=== PATIENT | female | born 1985 | race Caucasian/White ===

== ENCOUNTER 2017-06-19 08:38 | Emergency (ER) | payer BC ==
[~2017-06-19] VITALS: Ht 162.6 cm; Wt 64.4 kg
[~2017-06-19 08:38] MED LIST: FLEXERIL10 MG PO; MOTRIN600 MG PO
[2017-06-19] MEDS ORDERED: AMOXICILLIN875 MG PO (09:08)
[2017-06-19 09:36] LABS: EOSINOPHIL (%) 0.1 % (0-5); HEMATOCRIT 39.1 % (36.0-46.0); IMMATURE GRANULOCYTE (%) 0.5 % (0.0-0.7); IMMATURE GRANULOCYTE COUNT 0.1 K/uL; INSTRUMENT ABS NEUTROPHIL CT 13.2 K/uL; LYMPHOCYTE COUNT 1.1 K/uL (1.0-2.8); MCH 28.1 PG (29.0-34.0); MCHC 33.2 G/DL (30.0-36.0); MCV 84.6 FL (83-99); MEAN PLAT.VOLUME 10.4 uM^3 (9.5-12.4); MONOCYTE (%) 6.3 % (3-12); NEUTROPHIL (%) 85.5 % (45-76); NEUTROPHIL COUNT 13.2 K/uL (1.8-6.4); PLATELET COUNT 233 K/uL (156-360); RBC DIS.WIDTH-CV 12.2 % (11.8-14.6); RBC DIS.WIDTH-SD 37.3 % (39-53); RED BLOOD COUNT 4.62 M/uL (3.80-5.20); WHITE BLOOD COUNT 15.5 K/uL (4.1-10.2)
[2017-06-19 09:49] LABS: CHLORIDE 105 mEq/L (99-109); POTASSIUM 3.5 mEq/L (3.7-5.4); SODIUM 136 mEq/L (136-147)
[2017-06-19 09:50] LABS: GLUCOSE 161 mg/dL (70-99)
[2017-06-19 09:52] LABS: ANION GAP 9 MEQ/L (2-14)
[2017-06-19 09:54] LABS: GFR ESTIMATE (CALCULATED) > 59 mL/min/
[2017-06-19 09:55] LABS: UREA NITROGEN (BUN) 8 mg/dL (9-23)
[2017-06-19] MEDS ORDERED: TYLENOL WITH C1 EACH PO (11:17)
[2017-06-19] MEDS ORDERED: CLEOCIN300 MG PO (11:17)
[2017-06-19 11:36] VITALS: BP 122/81
== END 2017-06-19 11:37 | disposition home or self-care (01) ==
LOC: EME 08:38
PROVIDERS: Emergency Medicine
DX: J02.0 Streptococcal pharyngitis (principal)
CPT/HCPCS: 80048; 85025; 99281; 99284; J0696; J1100; J1885; J7030; J7050

== ENCOUNTER 2018-04-12 17:50 | Outpatient (CLI) | payer BC ==
[~2018-04-12] VITALS: Ht 162.6 cm; Wt 75.9 kg
[~2018-04-12 17:50] MED LIST changes: +AMOXICILLIN875 MG PO; +CLEOCIN300 MG PO; +TYLENOL WITH C1 EACH PO
[2018-04-12 18:18] VITALS: BP 145/91
[2018-04-12] MEDS ORDERED: PRENATAL + DHA1 EAC1 PO (18:20)
[2018-04-12 18:34] LABS: BASOPHIL (%) 0.2 % (0-1); EOSINOPHIL (%) 1.2 % (0-5); EOSINOPHIL COUNT 0.1 K/uL (0-0.3); HEMATOCRIT 35.6 % (36.0-46.0); IMMATURE GRANULOCYTE (%) 0.7 % (0.0-0.7); LYMPHOCYTE (%) 26.7 % (15-42); LYMPHOCYTE COUNT 2.2 K/uL (1.0-2.8); MCH 28.7 PG (29.0-34.0); MCHC 33.7 G/DL (30.0-36.0); MCV 85.2 FL (83-99); MONOCYTE COUNT 0.8 K/uL (0-0.8); NEUTROPHIL (%) 61.2 % (45-76); NEUTROPHIL COUNT 5.1 K/uL (1.8-6.4); PLATELET COUNT 217 K/uL (156-360); RBC DIS.WIDTH-CV 13.9 % (11.8-14.6); RBC DIS.WIDTH-SD 43.3 % (39-53); RED BLOOD COUNT 4.18 M/uL (3.80-5.20); WHITE BLOOD COUNT 8.3 K/uL (4.1-10.2)
[2018-04-12 18:39] VITALS: BP 134/90
[2018-04-12 18:59] VITALS: BP 129/86
[2018-04-12 18:59] LABS: ALBUMIN 3.3 G/DL (3.2-4.8); ALKALINE PHOSPHATASE 124 IU/L (3-129); ALT (GPT) 11 IU/L (3-49); AST (GOT) 13 IU/L (2-34); CHLORIDE 107 MEQ/L (99-109); CREATININE 0.5 MG/DL (0.6-1.3); GFR ESTIMATE (CALCULATED) > 59 mL/min/; GLUCOSE 102 mg/dL (70-99); POTASSIUM 3.9 MEQ/L (3.7-5.4); SODIUM 137 MEQ/L (136-147); TOTAL BILIRUBIN 0.2 MG/DL (0.0-1.0); TOTAL PROTEIN 5.8 G/DL (6.4-8.3); UREA NITROGEN (BUN) 7 mg/dL (9-23); URIC ACID 3.9 mg/dL (3.1-9.2)
[2018-04-12 19:19] VITALS: BP 134/91
[2018-04-12 19:39] VITALS: BP 128/84
[2018-04-12 20:18] LABS: UR CREATININE CONCENTRATION 21.1 MG/DL
== END 2018-04-12 20:15 | disposition home or self-care (01) ==
LOC: LDRP-OP 17:50 → 2WEST 17:53 → LDRP-OP 06-06 16:57
PROVIDERS: Obstetrics & Gynecology Gynecology
DX: O26.893 Other specified pregnancy related conditions, third trimester (principal); R03.0 Elevated blood-pressure reading, without diagnosis of hypertension; Z87.891 Personal history of nicotine dependence; Z3A.36 36 weeks gestation of pregnancy
CPT/HCPCS: 59025; 80053; 82570; 84156; 84550; 85025; G0378

== ENCOUNTER 2018-04-19 19:05 | Inpatient (IN) | payer BC ==
[~2018-04-19] VITALS: Ht 162.6 cm; Wt 75.3 kg
[~2018-04-19 19:05] MED LIST changes: +PRENATAL + DHA1 EAC1 PO
[2018-04-19 19:24] VITALS: BP 134/97
[2018-04-19 20:00] VITALS: BP 140/93
[2018-04-19 20:07] LABS: BASOPHIL (%) 0.2 % (0-1); EOSINOPHIL (%) 1.5 % (0-5); EOSINOPHIL COUNT 0.1 K/uL (0-0.3); HEMATOCRIT 35.1 % (36.0-46.0); IMMATURE GRANULOCYTE (%) 0.5 % (0.0-0.7); LYMPHOCYTE COUNT 2.1 K/uL (1.0-2.8); MCH 29.3 PG (29.0-34.0); MCHC 34.2 G/DL (30.0-36.0); MCV 85.6 FL (83-99); MONOCYTE (%) 8.5 % (3-12); MONOCYTE COUNT 0.7 K/uL (0-0.8); NEUTROPHIL (%) 64.3 % (45-76); NEUTROPHIL COUNT 5.3 K/uL (1.8-6.4); PLATELET COUNT 201 K/uL (156-360); RBC DIS.WIDTH-CV 13.9 % (11.8-14.6); RBC DIS.WIDTH-SD 42.8 % (39-53); WHITE BLOOD COUNT 8.3 K/uL (4.1-10.2)
[2018-04-19 20:30] LABS: ALBUMIN 3.2 G/DL (3.2-4.8); ALKALINE PHOSPHATASE 138 IU/L (3-129); ALT (GPT) 12 IU/L (3-49); AST (GOT) 13 IU/L (2-34); CHLORIDE 109 MEQ/L (99-109); CREATININE 0.5 MG/DL (0.6-1.3); GFR ESTIMATE (CALCULATED) > 59 mL/min/; GLUCOSE 152 mg/dL (70-99); POTASSIUM 3.8 MEQ/L (3.7-5.4); SODIUM 137 MEQ/L (136-147); TOTAL BILIRUBIN 0.2 MG/DL (0.0-1.0); TOTAL PROTEIN 5.8 G/DL (6.4-8.3); UREA NITROGEN (BUN) 6 mg/dL (9-23)
[2018-04-19 21:02] VITALS: BP 156/107
[2018-04-19 21:10] LABS: UR CREATININE CONCENTRATION 150.9 MG/DL
[2018-04-19 21:17] LABS: AMPHETAMINE NEGATIVE (500 ng/mL); BARBITURATES NEGATIVE (200 ng/mL); BENZODIAZEPINES NEGATIVE (150 ng/mL); BUPRENORPHINE NEGATIVE (10 ng/mL); COCAINE NEGATIVE (150 ng/mL); METHADONE NEGATIVE (200 ng/mL); METHAMPHETAMINE NEGATIVE (500 ng/mL); OPIATES (MORPHINE) NEGATIVE (100 ng/mL); OXYCODONE NEGATIVE (100 ng/mL); PHENCYCLIDINE NEGATIVE (25 ng/mL); PROPOXYPHENE NEGATIVE (300 ng/mL); THC CANNABINOIDS NEGATIVE (50 ng/mL); TRICYCLIC ANTIDEPRESSANTS NEGATIVE (300 ng/mL)
[2018-04-19 21:47] VITALS: BP 134/73
[2018-04-20] VITALS (21 sets, daily range): BP systolic 123–161; BP diastolic 77–101
[2018-04-21] VITALS (19 sets, daily range): BP systolic 113–147; BP diastolic 66–94
[2018-04-21] MEDS ORDERED: IBUPROFEN800 MG PO (14:46)
[2018-04-22 07:42] VITALS: BP 141/63
[2018-04-22 16:45] VITALS: BP 140/82
[2018-04-22 20:54] VITALS: BP 177/90
[2018-04-22 22:40] VITALS: BP 132/74
[2018-04-23] VITALS (12 sets, daily range): BP systolic 106–158; BP diastolic 56–94
[2018-04-23 07:08] LABS: BASOPHIL (%) 0.7 % (0-1); BASOPHIL COUNT 0.1 K/uL (0-0.1); EOSINOPHIL (%) 4.5 % (0-5); EOSINOPHIL COUNT 0.3 K/uL (0-0.3); HEMATOCRIT 34.5 % (36.0-46.0); HEMOGLOBIN 11.4 G/DL (11.9-15.5); IMMATURE GRANULOCYTE (%) 0.7 % (0.0-0.7); LYMPHOCYTE (%) 29.8 % (15-42); LYMPHOCYTE COUNT 2.2 K/uL (1.0-2.8); MCH 29.1 PG (29.0-34.0); MONOCYTE (%) 7.1 % (3-12); MONOCYTE COUNT 0.5 K/uL (0-0.8); NEUTROPHIL (%) 57.2 % (45-76); NEUTROPHIL COUNT 4.2 K/uL (1.8-6.4); PLATELET COUNT 198 K/uL (156-360); RED BLOOD COUNT 3.92 M/uL (3.80-5.20); WHITE BLOOD COUNT 7.4 K/uL (4.1-10.2)
[2018-04-23 07:37] LABS: ALBUMIN 2.7 G/DL (3.2-4.8); ALKALINE PHOSPHATASE 101 IU/L (3-129); ALT (GPT) 13 IU/L (3-49); AST (GOT) 17 IU/L (2-34); CHLORIDE 108 MEQ/L (99-109); CREATININE 0.6 MG/DL (0.6-1.3); GFR ESTIMATE (CALCULATED) > 59 mL/min/; GLUCOSE 78 mg/dL (70-99); POTASSIUM 4.1 MEQ/L (3.7-5.4); SODIUM 141 MEQ/L (136-147); TOTAL BILIRUBIN 0.2 MG/DL (0.0-1.0); UREA NITROGEN (BUN) 8 mg/dL (9-23)
[2018-04-23] MEDS ORDERED: LABETALOL HCL200 MG PO (10:13)
== END 2018-04-23 15:49 | disposition home or self-care (01) | DRG 774 ==
LOC: LDRP-OP 19:05 → 2WEST 19:10 → LDRP-OP 04-20 17:17 → 2WEST 04-21 14:09 → LDRP-OP 06-06 20:46
PROVIDERS: Advanced Practice Midwife; Obstetrics & Gynecology Gynecology
DX: O10.02 Pre-existing essential hypertension complicating childbirth (principal); Z3A.37 37 weeks gestation of pregnancy; Z37.0 Single live birth
CPT/HCPCS: 80053; 82570; 84156; 85025; C1755; G0378; J0595; J3010; J7120